=== PATIENT | male | born 1990 | race Caucasian/White ===

== ENCOUNTER 2016-11-17 15:42 | Emergency (ER) | payer OTHER ==
[2016-11-17] MEDS ORDERED: LIDOCAINE HCL/EPINEPHRINE 30 ML VIAL IJ ONE (16:14)
[2016-11-17] MEDS ORDERED: DIPHTH,PERTUSS(ACELL),TET VAC 0.5 ML VIAL IM ONE (16:18)
[2016-11-17] MEDS ORDERED: ceFAZolin SODIUM 2 GM in DEXTROSE 5 % IN WATER 100 ML IV ONE ×2 (16:18)
[2016-11-17] MEDS ORDERED: TETANUS AND DIPHTHERIA TOXOID 0.5 ML SYRG IM ONE (16:20)
--- NOTE | 2016-11-17 16:29 | ERNOTE ---
Medical Problem HPI - General Chief Complaint: Laceration Time Seen by Provider: 11/17/16 16:11 Source: patient Exam Limitations: no limitations - Immun/Allergies/Home Medications Immunizations: IMMUNIZATION HX History of Influenza Vaccine No Hx Pneumococcal Vaccination No Allergies/Adverse Reactions: Allergies Sulfa (Sulfonamide Antibiotics) Adverse Reaction (Mild, Verified 11/17/16 15:57) Hives Home Medications: HOME MEDICATIONS Cephalexin Monohydrate [Keflex] 500 mg PO QID #40 cap 11/17/16 [Last Taken Unknown] HYDROcodone/ACETAMINOPHEN [[place] 5-325] 1 - 2 tab PO QID PRN #12 tab 11/17/16 [ Last Taken Unknown] - History of Present History Narrative: Here for laceration to right forearm on a sharp metal fence. This happened in the field prior to presentation to ED and pt has no idea when if ever he has had a Tetanus shot. Review of Systems - Review of Systems Constitutional: Present: no symptoms reported EYE: Present: no symptoms reported ENT: Present: no symptoms reported Respiratory: Present: no symptoms reported Cardiology: Present: no symptoms reported Gastrointestinal/Abdominal: Present: no symptoms reported Genitourinary: Present: no symptoms reported Musculoskeletal: Present: See HPI Skin: Present: other - 12 cm laceration to the medial aspect of the right griselda - Immunizations Hx Pneumococcal Vaccination: No History of Influenza Vaccine: No Physical Exam - Physical Exam General Appearance: Present: wd/wn, alert, no apparent distress Ears, Nose, Throat: Present: normal ENT inspection Respiratory: Present: no respiratory distress, normal breath sounds, no accessory muscle use, chest nontender, lungs clear Cardiovascular/Chest: Present: regular rate, rhythm, no murmur, normal peripheral pulses Gastrointestinal/Abdominal: Present: normal bowel sounds, nontender, nondistended, soft Extremity Exam: Present: other - Three is a full thickness laceration to the medial aspect of the right forearm, thru epidermis, dermis and subcutaneous fat down to the fascia. the function of the flexors of the pinky and abduction of right pinky digit is intact ED Progress - Vital Signs Patient's Vital Signs:: I have reviewed the patient's vital signs. Vital Signs: Vital Signs 11/17/16 15:53 Temperature 37.4 C Pulse Rate 84 Respiratory 16 Rate Blood Pressure 112/71 O2 Sat by Pulse 95 Oximetry - Progress/Reassessment Chief Complaint: Laceration Plan - Plan Plan: This is quite an extensive laceration and Dr. Luong was consulted regarding the care of this laceration. Dr. Luong graciously presented to bedside and repaired the laceration Departure - Departure Clinical Impression: Laceration of right forearm Qualifiers: Encounter type: initial encounter Qualified Code(s): S51.811A - Laceration without foreign body of right forearm, initial encounter Disposition: Home self-care Condition: Good Instructions: Laceration Care, Adult, [id number] Referrals: Andrae Carranza MD [Primary Care Provider] - Prescriptions: Cephalexin Monohydrate [Keflex] 500 mg PO QID #40 cap HYDROcodone/ACETAMINOPHEN [[place] 5-325] 1 - 2 tab PO QID PRN #12 tab PRN Reason: Pain
--- OUTSIDE RECORDS SUMMARY | 2016-11-17 16:37 | XMS REPORT | Continuity of Care Document ---
:1990 Author Organization [facility] ([facility]) Address [address] [place] [address] Phone [phone] Care Team Providers Name Role Phone Unavailable Primary Care Provider Unavailable Source Comments This disclosure is being made pursuant to the Care Everywhere program, applicable federal and state laws, and may not contain all informaitonavailable regarding this patient.[facility] ([facility]) Active Allergies and Adverse Reactions Not on File Current Medications Not on file Active Problems Not on file Social History Tobacco Use Types Packs/Day Years Used Date Never Assessed Plan of Care Health Maintenance Due Date Last Done Comments Hepatitis B Vaccine (1 of 3 - Primary Series) 1989 Tdap Vaccine 2000 Lipid Disorder Screening 2007 MMR Vaccine 2007 Td Vaccine 2007 Varicella Vaccine (1 of 2 - Adult - No Evidence of 2007 Immunity) Influenza Vaccine: Seasonal (#1) 01/18/2016 Results from Last 3 Months Not on file
--- OUTSIDE RECORDS SUMMARY | 2016-11-17 16:37 | XMS REPORT | Continuity of Care Document ---
:1990 Author Organization [facility] [place] [address] Care Team Providers Name Role Phone Unavailable Primary Care Provider Unavailable Source Comments This disclosure is being made pursuant to the [email or web address] program and maynot contain all information available regarding this patient.[facility] Active Allergies and Adverse Reactions Not on File Current Medications Be aware that medications may not be up to date as of this document. Alwaysverify current medications with the patient. Not on file Active Problems Not on file Social History Tobacco Use Types Packs/Day Years Used Date Never Assessed Plan of Care Health Maintenance Due Date Last Done Comments Retired-Pertussis Vaccine Adult 2008 Retired-Tetanus Vaccine Adult 2008 Retired-INFLUENZA VACCINE 02/17/2015 Results from Last 3 Months Not on file
[2016-11-17] MEDS ORDERED: ceFAZolin SODIUM 2 GM in DEXTROSE 5 % IN WATER 50 ML IV ONE ×2 (17:00)
[2016-11-17 17:42] VITALS: BP 115/77
--- NOTE | 2016-11-18 17:15 | OR ---
Operative Report - Dictated Report Narrative: OPERATIVE REPORT DATE OF OPERATION: 11/17/2016 PREOPERATIVE DIAGNOSIS: Laceration right forearm POSTOPERATIVE DIAGNOSIS: 12 cm laceration, volar aspect right forearm, involving skin and subcutaneous tissue down but not involving fascia OPERATION: Repair laceration right forearm SURGEON: Jeanie Luong MD ANESTHESIA: 0.5% Marcaine with epinephrine injected local anesthetic INDICATIONS FOR PROCEDURE: The patient is a 26-year-old male shortly prior to presentation sustained a laceration from a chain link fence to the volar aspect of the right forearm. Neurovascular exam is intact. He has full function of the hand. The wound is been rinsed with saline and his tetanus immunization is been updated. FINDINGS: 12 cm laceration involving the skin and subcutaneous tissue, down to but not involving the fascia NARRATIVE OF PROCEDURE: The patient was identified before the procedure and a timeout observed. With the patient's right arm outstretched and supinated, the area was prepped with Betadine solution and isolated with sterile towels. 0.5% Marcaine with epinephrine was used for local anesthetic infiltration. The wound was then again cleansed with saline and Betadine. The wound was prudently explored to exclude foreign body. The subcutaneous tissue was approximated with interrupted sutures of 2-0 chromic. The skin was secured with amarilis. The operative site was washed and dried. A dressing of mupirocin ointment, folded 4 x 4's, and tape was applied. The patient tolerated the procedure well. There was repeat normal neurovascular and functional exam after the procedure. There was no appreciable bleeding. No specimens were submitted. He was given a prescription for Keflex and pain medication. He was given instructions to keep the wound dry and covered but may change the dressing and apply mupirocin ointment. He has phone numbers to call for signs of wound infection or any questions. A return office appointment will be made for 2016 for wound inspection and possible staple removal. Reviewed and electronically signed
== END 2016-11-17 17:40 | disposition home or self-care (01) ==
LOC: ER 15:42
PROC: 0JQG0ZZ Repair Right Lower Arm Subcutaneous Tissue and Fascia, Open Approach (ICD-10-PCS; principal; 2016-11-17)
DX: S51.811A Laceration without foreign body of right forearm, initial encounter (principal); W45.8XXA Other foreign body or object entering through skin, initial encounter; Y93.9 Activity, unspecified; Y92.73 Farm field as the place of occurrence of the external cause; Y99.9 Unspecified external cause status; Z23 Encounter for immunization